=== PATIENT | male | born 1940 | race Caucasian/White ===

== ENCOUNTER 2020-08-17 04:30 | Day surgery (SDC) | payer OTHER, MEDICARE ==
[2020-08-16 16:57] VITALS: BMI 25.0
[2020-08-17] MEDS ORDERED: ACETAMINOPHEN 1000 MG/100 ML VIAL (NON FORMULARY) IVPB ONE (13:06)
[2020-08-17] MEDS ORDERED: MIDAZOLAM HCL 2 MG/2 ML SINGLE DOSE VIAL ONE (13:09)
[2020-08-17] MEDS ORDERED: ceFAZolin SODIUM 1 GM VIAL ONE (13:15)
[2020-08-17] MEDS ORDERED: DEXTROSE 5%-0.45% SALINE 1,000 ML IV SCH (13:15)
[2020-08-17] MEDS ORDERED: DEXAMETHASONE SOD PHOSPHATE 4 MG/1 ML VIAL ONE (13:23)
[2020-08-17 13:55] VITALS: TEMP 98
[2020-08-17 14:50] VITALS: BP 112/58; PULSE 51
== END 2020-08-17 15:45 | disposition home or self-care (01) ==
LOC: JASU-SURG 04:30
PROVIDERS: ATTEND Urology
PROC: 0TF3XZZ Fragmentation in Right Kidney Pelvis, External Approach (ICD-10-PCS; principal; 2020-08-17 12:30)
DX: N20.0 Calculus of kidney (principal)